=== PATIENT | male | born 1980 | race Caucasian/White ===

== ENCOUNTER → 2016-12-07 | Outpatient (CLI) | payer OTHER ==
[~2016-12-07] MED LIST: INSU100V27; INSU100V28 SQ
--- NOTE | 2016-12-07 15:14 | DI ---
Indication: ITS.REASON: S67.10XA CRUSH INJURY TO FINGER, INITIAL PROCEDURE: FINGERS LEFT 2 VIEW MIN: Encounter: Initial Comparison: None Findings: Mildly comminuted slightly displaced fracture of the tuft of the small finger distal phalanx. No additional acute fracture or dislocation seen. Fracture does not extend into the joint space. Impression: Closed posttraumatic fracture of the small finger distal phalangeal tuft. .
== END ==
LOC: IMA 14:26
PROVIDERS: ATTEND Registered Nurse
DX: S62.637A Displaced fracture of distal phalanx of left little finger, initial encounter for closed fracture (principal); W23.0XXA Caught, crushed, jammed, or pinched between moving objects, initial encounter; Y93.89 Activity, other specified; Y92.9 Unspecified place or not applicable; Y99.9 Unspecified external cause status